=== PATIENT | female | born 1990 | race Caucasian/White ===

== ENCOUNTER 2016-08-03 11:28 | Outpatient (CLI) | payer OTHER ==
[~2016-08-03] VITALS: Ht 175.3 cm; Wt 124.3 kg
[~2016-08-03 11:28] MED LIST: CEPH500T PO; LABE200T3 PO
[2016-08-03 11:36] VITALS: BP 131/91
[2016-08-03] MEDS ORDERED: FLUT9.9S NSEACH (11:39)
[2016-08-03] MEDS ORDERED: HYDR12.56 PO (11:39)
[2016-08-03] MEDS ORDERED: CETI10TA20 PO (11:39)
[2016-08-03 12:00] LABS: BASOPHILS % (AUTO) 0 % (0-10); EOSINOPHILS # (AUTO) 0.2 10^3/uL (0.0-0.3); EOSINOPHILS % (AUTO) 3 % (0-10); LYMPHOCYTES # (AUTO) 2.4 X 10^3 (1.0-4.0); LYMPHOCYTES % (AUTO) 35 % (12-44); MEAN CORPUSCULAR HEMOGLOBIN 27 PG (25-34); MEAN CORPUSCULAR HGB CONC 32 G/DL (32-36); MEAN CORPUSCULAR VOLUME 85 FL (80-99); MEAN PLATELET VOLUME 10.5 FL (7.4-10.4); MONOCYTES # (AUTO) 0.3 X 10^3 (0.0-1.0); MONOCYTES % (AUTO) 4 % (0-12); NEUTROPHILS % (AUTO) 58 % (42-75); PLATELET COUNT 289 10^3/uL (130-400); RED BLOOD COUNT 4.35 10^6/uL (4.35-5.85); RED CELL DISTRIBUTION WIDTH 14.8 % (10.0-14.5); WHITE BLOOD COUNT 6.9 10^3/uL (4.3-11.0)
[2016-08-03 12:20] LABS: ANION GAP 8 MMOL/L (5-14); BLOOD UREA NITROGEN 13 MG/DL (7-18); BUN/CREATININE RATIO 18; CALCIUM 8.6 MG/DL (8.5-10.1); CARBON DIOXIDE 25 MMOL/L (21-32); CHLORIDE 105 MMOL/L (98-107); CREATININE SERUM 0.71 MG/DL (0.60-1.30); GFR ESTIMATED > 60; GLUCOSE 98 MG/DL (70-105); POTASSIUM 3.7 MMOL/L (3.6-5.0); SODIUM 138 MMOL/L (135-145)
== END 2016-08-03 11:50 | disposition home or self-care (01) ==
LOC: PREOP 11:28
PROVIDERS: ATTEND Obstetrics & Gynecology
DX: Z01.812 Encounter for preprocedural laboratory examination (principal); Z11.2 Encounter for screening for other bacterial diseases; N93.8 Other specified abnormal uterine and vaginal bleeding; R10.2 Pelvic and perineal pain; D64.9 Anemia, unspecified
CPT/HCPCS: 36415; 80048; 85025; 87081

== ENCOUNTER 2016-08-08 10:30 | Day surgery (SDC) | payer OTHER ==
[~2016-08-08] VITALS: Ht 175.3 cm; Wt 124.3 kg
[2016-08-08 10:30] VITALS: BP 136/92
[~2016-08-08 10:30] MED LIST changes: +CETI10TA20 PO; +FLUT9.9S NSEACH; +HYDR12.56 PO
[2016-08-08] MEDS ORDERED: CATHETER FLUSH 10 ML SYR IV PRN (11:30)
[2016-08-08] MEDS ORDERED: ceFAZolin 1 GM/NS 50 ML IVPB IV ONE ×2 (11:30)
[2016-08-08] MEDS ORDERED: BUP/EPI 0.25% 1:200,000 (MARCAINE) 30 ML VIAL ONE ×2 (11:30→11:47)
[2016-08-08] MEDS: LACTATED RINGERS 1,000 ML IV PRN ×3 (12:38→14:30)
[2016-08-08] MEDS ORDERED: LACTATED RINGERS 1,000 ML IV PRN (12:40)
[2016-08-08] MEDS ORDERED: MIDAZOLAM 2 MG/2 ML (VERSED) VIAL IV ONE (12:45)
[2016-08-08] MEDS ORDERED: D5 LR IV SOLUTION 1,000 ML IV SCH (13:11)
--- NOTE | 2016-08-08 13:11 | Progress Note-Pre Operative ---
Pre-Operative Progress Note H&P Reviewed The H&P was reviewed, patient examined and no changes noted. Date H&P Reviewed: August 08, 2016 Time H&P Reviewed: 13:10 Pre-Operative Diagnosis: uterine septum/chronic pelvic pain/ovarian cysts JOSE ALBERTO KIRKLAND MD August 08, 2016 1:11 pm
[2016-08-08] MEDS ORDERED: fentaNYL INJECTION 100 MCG/2 ML AMP ONE (13:13)
[2016-08-08] MEDS ORDERED: OXYC-202 PO (13:13)
[2016-08-08] MEDS ORDERED: MIDAZOLAM 2 MG/2 ML (VERSED) VIAL ONE (13:13)
[2016-08-08] MEDS ORDERED: MEPERIDINE (DEMEROL) INJ 100 MG/ML IM ONE (13:15)
[2016-08-08] MEDS ORDERED: ESTROGENS CONJ IV 25 MG/5 ML (PREMARIN) VIAL IVP ONE (13:15)
[2016-08-08] MEDS ORDERED: PROMETHAZINE INJ 25 MG/ML (PHENERGAN) AMP IM ONE (13:15)
[2016-08-08] MEDS ORDERED: KETOROLAC 30 MG/ML VIAL IVP ONE (13:15)
[2016-08-08] MEDS ORDERED: oxyCODONE/APAP 10/325MG (PERCOCET 10) TABLET PO PRN ×2 (13:15→16:00)
[2016-08-08] MEDS ORDERED: ONDANSETRON 4 MG/2 ML (SDV) Z0FRAN IVP PRN ×2 (13:15→14:30)
--- NOTE | 2016-08-08 13:15 | Discharge Instructions ---
Discharge Instructions Discharge Medications New, Converted or Re-Newed RX: RX on Chart Patient Instructions Patient Instructions: as instructed Return to The Hospital For: as instructed Activity & Diet Discharge Diet: No Restrictions Activity as Tolerated: No Orders-Post D/C & Referrals Follow Up Appt: Call to make follow up appt. for MondayAugust 12, 2016 at 930 a.m. for catheter removal and suture removal Activity: Rest for 24 hours, than as tolerated. Wound Care: May remove Band-Aid tomorrow. Replace as desired. Keep incisions clean and dry. Wash daily with soap and water. Diet: As tolerated-Clear Liquids only if nauseated. Tomorrow, may shower or tub bathe as desired. No driving for 24 hours, no alcoholic beverages for 24 hours, and nothing per vagina (no tampons, douching, or intercourse) for 2 weeks. Patient to return to the clinic as soon as possible for: Temperature greater than 101F, Severe Pain, Foul discharge from incision or vagina, Excessive Bleeding (more than a period). JOSE ALBERTO KIRKLAND MD August 08, 2016 1:15 pm
[2016-08-08] MEDS ORDERED: DEXAMETHASONE PF 10 MG/ML (DECADRON) VIAL ONE (14:08)
[2016-08-08] MEDS ORDERED: SEVOFLURANE (ULTANE) 15 ML INHAL SOLN ONE ×2 (14:08→14:27)
[2016-08-08] MEDS ORDERED: LIDOCAINE PF 2% 10 ML (XYLOCAINE) AMP ONE (14:08)
[2016-08-08] MEDS ORDERED: proPOfol 200 MG/20 ML (DIPRIVAN) VIAL IV ONE (14:08)
[2016-08-08] MEDS ORDERED: LACTATED RINGERS 1,000 ML IV ONE ×3 (14:08→14:27)
[2016-08-08] MEDS ORDERED: GLYCOPYRROLATE 0.2 MG/ML (ROBINUL) 2 ML VIAL ONE (14:10)
[2016-08-08] MEDS ORDERED: NEOSTIGMINE (BLOXIVERZ ) 1 MG/1ML 10 ML VIAL ONE (14:10)
[2016-08-08] MEDS ORDERED: fentaNYL INJECTION 100 MCG/2 ML AMP IVP PRN (14:30)
[2016-08-08] MEDS ORDERED: ESTROGENS CONJ IV 25 MG/5 ML (PREMARIN) VIAL ONE (14:48)
[2016-08-08] MEDS ORDERED: WATER (STERILE) FOR INJECTION 10 ML ONE (14:48)
[2016-08-08] MEDS ORDERED: morphine INJ 10 MG/ML 1ML (SYR OR VIAL) ONE (14:48)
[2016-08-08] MEDS: morphine INJ 10 MG/ML 1ML (SYR OR VIAL) IVP PRN ×2 (14:56→15:06)
[2016-08-08 15:35] VITALS: BP 126/80
[2016-08-08 16:05] VITALS: BP 131/80
[2016-08-08 17:00] VITALS: BP 112/60
[2016-08-08 17:45] VITALS: BP 112/60
--- NOTE | 2016-08-09 07:56 | OPERATIVE REPORT ---
DATE OF SERVICE: 08/08/2016 PREOPERATIVE DIAGNOSIS: Dysfunctional uterine bleeding and uterine septum as well as chronic pelvic pain and ovarian cyst. POSTOPERATIVE DIAGNOSIS: Dysfunctional uterine bleeding and uterine septum as well as chronic pelvic pain and ovarian cyst with endometriosis. OPERATIVE PROCEDURE: 1. Hysteroscopic uterine septum revision. 2. Dilation and curettage. 3. Laparoscopy for destruction of endometrial implants and hydrotubation and destruction of ovarian cyst. OPERATIVE DESCRIPTION: With the patient in the supine position under satisfactory general anesthesia, she was repositioned in the dorsal lithotomy position in Mati stirrups and prepped and draped in the usual fashion for abdominal and vaginal surgery. The urinary bladder was emptied with the straight catheter. A weighted speculum was placed the posterior fornix of the vagina and the cervix exposed and grasped anteriorly with single tooth tenaculum. The uterus was sounded to 9 cm with a uterine sound. The cervix was then dilated with Dean dilators to accommodate a hysteroscope which was introduced using glycine as a distending medium. The endometrial cavity was examined. There were a couple of polypoid portions of tissue. The hysteroscope was removed. D and C was performed removing those fragments of tissue as well as the balance of the endometrium. The hysteroscope was reintroduced. There was a septum evident protruding approximately 1/[address] down the endometrial cavity, both tubal ostia were visible and were normal in appearance. The resectoscope was then used, using a roller ball and 50 walsh of cautery to destroy the septum up to the apex of the endometrial cavity. There was no bleeding. Good separation of the anterior and posterior uterine wall at the apex of the uterus was evident. At this point, the hysteroscopic portion of the procedure was terminated, the hysteroscope was removed. A uterine manipulator was placed in the uterus in preparation for a laparoscopy and then the patient brought in low dorsal lithotomy position. A 5 mm incision made in the patient's left upper quadrant, a 5 mm in the inferior base of the umbilicus and 5 mm superior to the symphysis pubis, all 3 port sites were infiltrated with 0.25% Marcaine with epinephrine before incisions were made. The Veress needle placed in the left upper quadrant incision. Correct placement was confirmed with the water drop test. The abdomen was insufflated with 2.4 liters of carbon dioxide and the Veress needle was removed. A 5 mm operative laparoscopic port placed under direct vision. The patient was placed in Trendelenburg allowing the bowel to spill up out of the pelvis and then 5 mm ports were placed in the other 2 incisions, under direct vision. The pelvis was examined, the uterus was elevated. There were endometrial implants in both ovarian fossae. There were numerous cysts on both ovaries consistent with polycystic ovaries. Both fallopian tubes were normal as were the fimbria. The laparoscope was rotated. The appendix was identified, it was a normal vermiform appendix. The laparoscope was brought back to the pelvis, the endometrial implants and both ovarian fossae were touched with electrocautery to destroy them. The superficial cysts on the ovaries were touched with electrocautery to fenestrate them and then the fluid was aspirated out. The cul-de-sac was examined. There was no abnormal pathology noted there. Hydrotubation was performed using sterile saline through the uterine manipulator. Initially, there was some resistance, but then free spill was noted bilaterally. With the procedure complete, no further pathology, no bleeding, the procedure was terminated. All the operative instruments removed under direct vision as were the ports. The abdomen was evacuated of insufflating gas in the process of removing the ports. The skin incisions were closed with interrupted sutures of 3-0 nylon. The patient was replaced in dorsal lithotomy position. A speculum replaced in the vagina, the uterine manipulator was removed and then an 8 mm pediatric Pinto catheter was placed in the uterine cavity. The balloon was put up with 3 mL of air. A nylon suture was used to attach the cervix to maintain it inside the vagina attached to the cervix. The plan will be for removal in 3-4 days. The sponge and needle counts were correct upon completion of the procedure. Estimated blood loss was minimal. The patient tolerated the procedure well and was uneventfully awakened from general anesthesia and transferred to the recovery room in stable condition. The plan is to discharge home PAR. Job ID: [id number] DocumentID: [id number] Dictated Date: 08/08/2016 14:25:00 Lisw Date: 08/09/2016 05:49:56 Dictated By: JOSE ALBERTO KIRKLAND MD
== END 2016-08-08 17:45 | disposition home or self-care (01) ==
LOC: SDC 10:30
PROVIDERS: ATTEND Obstetrics & Gynecology
DX: N80.1 Endometriosis of ovary (principal); N83.201 Unspecified ovarian cyst, right side; N83.202 Unspecified ovarian cyst, left side; I10 Essential (primary) hypertension; Z79.899 Other long term (current) drug therapy
CPT/HCPCS: 84703

== ENCOUNTER 2017-07-22 10:03 | Emergency (ER) | payer OTHER ==
[~2017-07-22] VITALS: Ht 175.3 cm; Wt 136.1 kg
[~2017-07-22 10:03] MED LIST changes: +OXYC-202 PO
--- OUTSIDE RECORDS SUMMARY | 2017-07-22 10:16 | XMS REPORT | Continuity of Care Document ---
Author Author [facility] Address Unknown Phone Unavailable Allergies Active Description Code Type Severity Reaction Onset Reported/Identified Relationship to Patient Clinical Status Yes No Known Drug Allergies [id number] Drug Allergy Unknown N/A 07/28/2015 Medications There is no data. Problems Date Dx Coded Attending Type Code Diagnosis Diagnosed By 04/20/2012 796.2 ELEVATED BLOOD PRESSURE READING WITHOUT DIAGNOSIS OF HYPERTENSION 04/20/2012 V25.01 CONTRACEPTION - ORAL CONTRACEPTION 04/20/2012 DULCE HESTER DO 796.2 ELEVATED BLOOD PRESSURE READING WITHOUT DIAGNOSIS OF HYPERTENSION 04/20/2012 DULCE HSETER DO V25.01 CONTRACEPTION - ORAL CONTRACEPTION 04/20/2012 796.2 ELEVATED BLOOD PRESSURE READING WITHOUT DIAGNOSIS OF HYPERTENSION 04/20/2012 V25.01 CONTRACEPTION - ORAL CONTRACEPTION 04/20/2012 ALESSANDRA MILES APRN 796.2 ELEVATED BLOOD PRESSURE READING WITHOUT DIAGNOSIS OF HYPERTENSION 04/20/2012 ALESSANDRA MILES APRN V25.01 CONTRACEPTION - ORAL CONTRACEPTION 04/20/2012 796.2 ELEVATED BLOOD PRESSURE READING WITHOUT DIAGNOSIS OF HYPERTENSION 04/20/2012 V25.01 CONTRACEPTION - ORAL CONTRACEPTION 04/20/2012 796.2 ELEVATED BLOOD PRESSURE READING WITHOUT DIAGNOSIS OF HYPERTENSION 04/20/2012 V25.01 CONTRACEPTION - ORAL CONTRACEPTION 04/20/2012 796.2 ELEVATED BLOOD PRESSURE READING WITHOUT DIAGNOSIS OF HYPERTENSION 04/20/2012 V25.01 CONTRACEPTION - ORAL CONTRACEPTION 04/20/2012 796.2 ELEVATED BLOOD PRESSURE READING WITHOUT DIAGNOSIS OF HYPERTENSION 04/20/2012 V25.01 CONTRACEPTION - ORAL CONTRACEPTION 04/20/2012 DULCE HESTER DO 796.2 ELEVATED BLOOD PRESSURE READING WITHOUT DIAGNOSIS OF HYPERTENSION 04/20/2012 DULCE HESTER DO V25.01 CONTRACEPTION - ORAL CONTRACEPTION 04/20/2012 DULCE HESTER DO 796.2 ELEVATED BLOOD PRESSURE READING WITHOUT DIAGNOSIS OF HYPERTENSION 04/20/2012 DULCE HESTER DO V25.01 CONTRACEPTION - ORAL CONTRACEPTION 04/20/2012 GINGERALESSANDRA Mohr APRN A 796.2 ELEVATED BLOOD PRESSURE READING WITHOUT DIAGNOSIS OF HYPERTENSION 04/20/2012 ALESSANDRA MILES APRN A V25.01 CONTRACEPTION - ORAL CONTRACEPTION 04/20/2012 DULCE HESTER DO 796.2 ELEVATED BLOOD PRESSURE READING WITHOUT DIAGNOSIS OF HYPERTENSION 04/20/2012 DULCE HESTER DO V25.01 CONTRACEPTION - ORAL CONTRACEPTION 04/20/2012 ARTURO DURAN MD 796.2 ELEVATED BLOOD PRESSURE READING WITHOUT DIAGNOSIS OF HYPERTENSION 04/20/2012 ARTURO DURAN MD V25.01 CONTRACEPTION - ORAL CONTRACEPTION 04/26/2012 DULCE HESTER DO V81.1 HYPERTENSION SCREENING 04/26/2012 V81.1 HYPERTENSION SCREENING 04/26/2012 ALESSANDRA MILES APRN A V81.1 HYPERTENSION SCREENING 04/26/2012 V81.1 HYPERTENSION SCREENING 04/26/2012 V81.1 HYPERTENSION SCREENING 04/26/2012 V81.1 HYPERTENSION SCREENING 04/26/2012 V81.1 HYPERTENSION SCREENING 04/26/2012 DULCE HESTER DO V81.1 HYPERTENSION SCREENING 04/26/2012 DULCE HESTER DO V81.1 HYPERTENSION SCREENING 04/26/2012 ALESSANDRA MILES APRN A V81.1 HYPERTENSION SCREENING 04/26/2012 DULCE HESTER DO V81.1 HYPERTENSION SCREENING 04/26/2012 ARTURO DURAN MD V81.1 HYPERTENSION SCREENING 05/07/2012 401.1 HYPERTENSION, BENIGN ESSENTIAL 05/07/2012 487.1 INFLUENZA WITH OTHER RESPIRATORY MANIFESTATIONS 05/07/2012 ALESSANDRA MILES APRN A 401.1 HYPERTENSION, BENIGN ESSENTIAL 05/07/2012 ALESSANDRA MILES APRN A 487.1 INFLUENZA WITH OTHER RESPIRATORY MANIFESTATIONS 05/07/2012 401.1 HYPERTENSION, BENIGN ESSENTIAL 05/07/2012 487.1 INFLUENZA WITH OTHER RESPIRATORY MANIFESTATIONS 05/07/2012 401.1 HYPERTENSION, BENIGN ESSENTIAL 05/07/2012 487.1 INFLUENZA WITH OTHER RESPIRATORY MANIFESTATIONS 05/07/2012 401.1 HYPERTENSION, BENIGN ESSENTIAL 05/07/2012 487.1 INFLUENZA WITH OTHER RESPIRATORY MANIFESTATIONS 05/07/2012 401.1 HYPERTENSION, BENIGN ESSENTIAL 05/07/2012 487.1 INFLUENZA WITH OTHER RESPIRATORY MANIFESTATIONS 05/07/2012 HESTER DO, DULCE K 401.1 HYPERTENSION, BENIGN ESSENTIAL 05/07/2012 SHALOM HESTER DOA K 487.1 INFLUENZA WITH OTHER RESPIRATORY MANIFESTATIONS 05/07/2012 MIR TRINIDAD DULCE K 401.1 HYPERTENSION, BENIGN ESSENTIAL 05/07/2012 SHALOM HESTER DOA K 487.1 INFLUENZA WITH OTHER RESPIRATORY MANIFESTATIONS 05/07/2012 DENNIS MILES APRNIDI A 401.1 HYPERTENSION, BENIGN ESSENTIAL 05/07/2012 DENNIS MILES APRNIDI A 487.1 INFLUENZA WITH OTHER RESPIRATORY MANIFESTATIONS 05/07/2012 MIR TRINIDAD DULCE K 401.1 HYPERTENSION, BENIGN ESSENTIAL 05/07/2012 SHALOM HESTER DOA K 487.1 INFLUENZA WITH OTHER RESPIRATORY MANIFESTATIONS 05/07/2012 RENEE CHACON, ARTURO Mohr 401.1 HYPERTENSION, BENIGN ESSENTIAL 05/07/2012 RENEE CHACON, ARTURO Mohr 487.1 INFLUENZA WITH OTHER RESPIRATORY MANIFESTATIONS 06/26/2012 DENNIS MILES APRNIDI A 724.5 BACK PAIN, GENERAL 06/26/2012 DENNIS MILES APRNIDI A V25.9 CONTRACEPTION MANAGEMENT 06/26/2012 ALESSANDRA MILES APRN A V74.5 STD SCREEN 06/26/2012 ALESSANDRA MILES APRN A V76.2 CERVICAL CANCER SCREENING (PAP SMEAR) 06/26/2012 724.5 BACK PAIN, GENERAL 06/26/2012 V25.9 CONTRACEPTION MANAGEMENT 06/26/2012 V74.5 STD SCREEN 06/26/2012 V76.2 CERVICAL CANCER SCREENING (PAP SMEAR) 06/26/2012 724.5 BACK PAIN, GENERAL 06/26/2012 V25.9 CONTRACEPTION MANAGEMENT 06/26/2012 V74.5 STD SCREEN 06/26/2012 V76.2 CERVICAL CANCER SCREENING (PAP SMEAR) 06/26/2012 724.5 BACK PAIN, GENERAL 06/26/2012 V25.9 CONTRACEPTION MANAGEMENT 06/26/2012 V74.5 STD SCREEN 06/26/2012 V76.2 CERVICAL CANCER SCREENING (PAP SMEAR) 06/26/2012 724.5 BACK PAIN, GENERAL 06/26/2012 V25.9 CONTRACEPTION MANAGEMENT 06/26/2012 V74.5 STD SCREEN 06/26/2012 V76.2 CERVICAL CANCER SCREENING (PAP SMEAR) 06/26/2012 DULCE HESTER DO K 724.5 BACK PAIN, GENERAL 06/26/2012 SHALOM HESTER DOA K V25.9 CONTRACEPTION MANAGEMENT 06/26/2012 HESTER DO DULCE K V74.5 STD SCREEN 06/26/2012 HESTER DO DULCE K V76.2 CERVICAL CANCER SCREENING (PAP SMEAR) 06/26/2012 HESTER DO DULCE K 724.5 BACK PAIN, GENERAL 06/26/2012 HESTER DO DULCE K V25.9 CONTRACEPTION MANAGEMENT 06/26/2012 HESTER DO DULCE K V74.5 STD SCREEN 06/26/2012 HESTER DO DULCE K V76.2 CERVICAL CANCER SCREENING (PAP SMEAR) 06/26/2012 GINGER RESTORATIVE AIDE, ALESSANDRA A 724.5 BACK PAIN, GENERAL 06/26/2012 GINGER RESTORATIVE AIDE, ALESSANDRA A V25.9 CONTRACEPTION MANAGEMENT 06/26/2012 GINGER RESTORATIVE AIDE, ALESSANDRA A V74.5 STD SCREEN 06/26/2012 GINGER RESTORATIVE AIDE, ALESSANDRA A V76.2 CERVICAL CANCER SCREENING (PAP SMEAR) 06/26/2012 SHALOM HESTER DOA K 724.5 BACK PAIN, GENERAL 06/26/2012 SHALOM HESTER DOA K V25.9 CONTRACEPTION MANAGEMENT 06/26/2012 HESTER DO DULCE K V74.5 STD SCREEN 06/26/2012 HESTER SHALOM TRINIDADA K V76.2 CERVICAL CANCER SCREENING (PAP SMEAR) 06/26/2012 ARTURO DURAN MD 724.5 BACK PAIN, GENERAL 06/26/2012 ARTURO DURAN MD V25.9 CONTRACEPTION MANAGEMENT 06/26/2012 ARTURO DURAN MD V74.5 STD SCREEN 06/26/2012 ARTURO DURAN MD V76.2 CERVICAL CANCER SCREENING (PAP SMEAR) 07/24/2012 V70.0 ROUTINE GENERAL MEDICAL EXAMINATION AT A HEALTH CARE FACILITY 07/24/2012 V70.0 ROUTINE GENERAL MEDICAL EXAMINATION AT A HEALTH CARE FACILITY 07/24/2012 V70.0 ROUTINE GENERAL MEDICAL EXAMINATION AT A HEALTH CARE FACILITY 07/24/2012 V70.0 ROUTINE GENERAL MEDICAL EXAMINATION AT A HEALTH CARE FACILITY 07/24/2012 DULCE HESTER DO K V70.0 ROUTINE GENERAL MEDICAL EXAMINATION AT A HEALTH CARE FACILITY 07/24/2012 DULCE HESTER DO K V70.0 ROUTINE GENERAL MEDICAL EXAMINATION AT A HEALTH CARE FACILITY 07/24/2012 GINGER DELGADO ALESSANDRA A V70.0 ROUTINE GENERAL MEDICAL EXAMINATION AT A HEALTH CARE FACILITY 07/24/2012 SHALOM HESTER DOA K V70.0 ROUTINE GENERAL MEDICAL EXAMINATION AT A HEALTH CARE FACILITY 07/24/2012 ARTURO DURAN MD V70.0 ROUTINE GENERAL MEDICAL EXAMINATION AT A HEALTH CARE FACILITY 09/12/2012 V25.02 CONTRACEPTION - ANY METHOD 09/12/2012 V25.02 CONTRACEPTION - ANY METHOD 09/12/2012 SHALOM HESTER DOA K V25.02 CONTRACEPTION - ANY METHOD 09/12/2012 SHALOM HESTER DOA K V25.02 CONTRACEPTION - ANY METHOD 09/12/2012 GINGER DELGADO ALESSANDRA A V25.02 CONTRACEPTION - ANY METHOD 09/12/2012 SHALOM HESTER DOA K V25.02 CONTRACEPTION - ANY METHOD 09/12/2012 ARTURO DURAN MD V25.02 CONTRACEPTION - ANY METHOD 01/18/2013 MIR TRINIDAD DULCE K 728.71 PLANTAR FASCIAL FIBROMATOSIS 01/18/2013 MIR TRINIDAD DULCE K 729.82 CRAMP OF LIMB 01/18/2013 MIR TRINIDAD, DULCE K 782.1 RASH 01/18/2013 HESTER , DULCE K 728.71 PLANTAR FASCIAL FIBROMATOSIS 01/18/2013 HESTER DO DULCE K 729.82 CRAMP OF LIMB 01/18/2013 HESTER , DULCE K 782.1 RASH 01/18/2013 GINGER DELGADO, ALESSANDRA A 728.71 PLANTAR FASCIAL FIBROMATOSIS 01/18/2013 GINGER DELGADO, ALESSANDRA A 729.82 CRAMP OF LIMB 01/18/2013 GINGER APRN, ALESSANDRA A 782.1 RASH 01/18/2013 HESTER DO DULCE K 728.71 PLANTAR FASCIAL FIBROMATOSIS 01/18/2013 HESTER , DULCE K 729.82 CRAMP OF LIMB 01/18/2013 HESTER DO DULCE K 782.1 RASH 01/18/2013 ARTURO DURAN MD 728.71 PLANTAR FASCIAL FIBROMATOSIS 01/18/2013 ARTURO DURAN MD 729.82 CRAMP OF LIMB 01/18/2013 ARTURO DURAN MD 782.1 RASH 02/19/2013 DULCE HESTER DO K 728.4 LAXITY OF LIGAMENT 02/19/2013 ALESSANDRA MILES APRN 728.4 LAXITY OF LIGAMENT 02/19/2013 DULCE HESTER DO K 728.4 LAXITY OF LIGAMENT 02/19/2013 ARTURO DURAN MD 728.4 LAXITY OF LIGAMENT 06/11/2013 DULCE HESTER DO K 611.71 MASTODYNIA 06/11/2013 ARTURO DURAN MD 611.71 MASTODYNIA 11/19/2013 ARTURO DURAN MD 789.01 ABDOMINAL PAIN RIGHT UPPER QUADRANT 11/06/2014 NAIDA NAVASRAVIN Sommers FILM EXAMINER Ot 959.7 11/06/2014 NAIDA NAVASRAVIN Sommers FILM EXAMINER Ot E888.9 11/18/2014 VANBECELAERE, RAKEL M FILM EXAMINER Ot 240.9 11/18/2014 VANBECELAERE, RAKEL M FILM EXAMINER Ot 787.20 11/20/2014 VANBECELAERE, RAKEL M FILM EXAMINER Ot 240.9 11/20/2014 VANBECELAERE, RAKEL M FILM EXAMINER Ot 787.20 11/20/2014 VANBECELAERE, RAKEL M FILM EXAMINER Ot 240.9 11/20/2014 VANBECELAERE, RAKEL M FILM EXAMINER Ot 787.20 07/28/2015 XANDER GARIBAY MD Ot N39.0 URINARY TRACT INFECTION, SITE NOT SPECIF 07/28/2015 NAIDA NAVASRAVIN Sommers FILM EXAMINER Ot 959.7 LOWER LEG INJURY NOS 07/28/2015 NAVAS, RAZA Sommers FILM EXAMINER Ot E888.9 FALL NOS 07/28/2015 VANBECELAERE, RAKEL M FILM EXAMINER Ot 240.9 GOITER NOS 07/28/2015 VANBECELAERE, RAKEL M FILM EXAMINER Ot 787.20 DYSPHAGIA, UNSPECIFIED 07/29/2015 XANDER GARIBAY MD Ot N39.0 URINARY TRACT INFECTION, SITE NOT SPECIF 08/02/2016 NAIDA NAVASNETTE A FILM EXAMINER Ot 959.7 LOWER LEG INJURY NOS 08/02/2016 NAIDA NAVASRAVIN Sommers FILM EXAMINER Ot E888.9 FALL NOS 08/02/2016 VANBECELAERE, RAKEL M FILM EXAMINER Ot 240.9 GOITER NOS 08/02/2016 RAKEL COXP Ot 787.20 DYSPHAGIA, UNSPECIFIED 08/03/2016 JOSE ALBERTO KIRKLAND MD, Ot D64.9 ANEMIA, UNSPECIFIED 08/03/2016 JOSE ALBERTO KIRKLAND MD, Ot N93.8 OTHER SPECIFIED ABNORMAL UTERINE AND VAG 08/03/2016 JOSE ALBERTO KIRKLAND MD, Ot R10.2 PELVIC AND PERINEAL PAIN 08/03/2016 JOSE ALBERTO KIRKLAND MD, Ot Z01.812 ENCOUNTER FOR PREPROCEDURAL LABORATORY E 08/03/2016 JOSE ALBERTO KIRKLAND MD, Ot Z11.2 ENCOUNTER FOR SCREENING FOR OTHER BACTER 08/04/2016 JOSE ALBERTO KIRKLAND MD, Ot D64.9 ANEMIA, UNSPECIFIED 08/04/2016 JOSE ALBERTO KIRKLAND MD, Ot N93.8 OTHER SPECIFIED ABNORMAL UTERINE AND VAG 08/04/2016 JOSE ALBERTO KIRKLAND MD, Ot R10.2 PELVIC AND PERINEAL PAIN 08/04/2016 JOSE ALBERTO KIRKLAND MD, Ot Z01.812 ENCOUNTER FOR PREPROCEDURAL LABORATORY E 08/04/2016 JOSE ALBERTO KIRKLAND MD, Ot Z11.2 ENCOUNTER FOR SCREENING FOR OTHER BACTER 08/08/2016 JOSE ALBERTO KIRKLAND MD, Ot I10 ESSENTIAL (PRIMARY) HYPERTENSION 08/08/2016 JOSE ALBERTO KIRKLNAD MD, Ot N80.1 ENDOMETRIOSIS OF OVARY 08/08/2016 JOSE ALBERTO KIRKLAND MD, Ot N83.201 UNSPECIFIED OVARIAN CYST, RIGHT SIDE 08/08/2016 JOSE ALBERTO KIRKLAND MD, Ot N83.202 UNSPECIFIED OVARIAN CYST, LEFT SIDE 08/08/2016 JOSE ALBERTO KIRKLAND MD, Ot Z79.899 OTHER RECRUITMENT ADVERTISING MANAGER (CURRENT) DRUG THERAPY 08/11/2016 JOSE ALBERTO KIRKLAND MD, Ot I10 ESSENTIAL (PRIMARY) HYPERTENSION 08/11/2016 JOSE ALBERTO KIRKLAND MD, Ot N80.1 ENDOMETRIOSIS OF OVARY 08/11/2016 JOSE ALBERTO KIRKLAND MD, Ot N83.201 UNSPECIFIED OVARIAN CYST, RIGHT SIDE 08/11/2016 JOSE ALBERTO KIRKLAND MD, Ot N83.202 UNSPECIFIED OVARIAN CYST, LEFT SIDE 08/11/2016 MARITA CHACON, JOSE ALBERTO Hines Ot Z79.899 OTHER RECRUITMENT ADVERTISING MANAGER (CURRENT) DRUG THERAPY Procedures Code [place] [address] URINE TEST (IN- HOUSE) 04/20/2012 03522 THERAPUTIC INJ SQ/IM 06/26/2012 J1050 DEPO PROVERA 06/26/2012 25440 CULTURE UROGENITAL 06/26/2012 82601 GC/CHLAM PROBE (STATE) 06/26/2012 80308 PAP SMEAR 06/26/2012 Q0091 PAP SMEAR OBTAIN SMEAR 06/26/2012 83291 URINE TEST (IN- HOUSE) 06/26/2012 09763 TRICHOMONAS (IN-HOUSE) 06/26/2012 19309 ROUTINE VENIPUNCTURE 07/24/2012 45156 TRIGGER POINT INJ/1-2 MUS 07/24/2012 08210 XRAY SHOULDER RIGHT COMP 2 VIEWS 07/24/2012 60637 CBC 07/24/2012 45884 LIPID PANEL 07/24/2012 52584 CMP 07/24/2012 5166896 GFR CALC (RESULT ONLY) 07/24/2012 24513 TSH 07/25/2012 PHYSICAL PHYSICAL THERAPY, VIA JESS 08/14/2012 09732 URINE TEST (IN- HOUSE) 09/12/2012 J1050 DEPO PROVERA 09/12/2012 62839 THERAPUTIC INJ SQ/IM 09/12/2012 70067 URINE TEST (IN- HOUSE) 12/05/2012 32799 THERAPUTIC INJ SQ/IM 12/05/2012 J1050 DEPO PROVERA 12/05/2012 73871 XRAY SCOLIOSIS SERIES 02/19/2013 45771 URINE TEST (IN- HOUSE) 02/25/2013 42532 TEST, URINE (IN- HOUSE) 06/11/2013 20509 ROUTINE VENIPUNCTURE 11/19/2013 59424 CMP 11/19/2013 Results Test Result Range Complete blood count (CBC) with automated white blood cell (WBC) differential - 08/03/16 11:47 Blood leukocytes automated count (number/volume) 6.9 10*3/uL 4.3-11.0 Blood erythrocytes automated count (number/volume) 4.35 10*6/uL 4.35-5.85 Venous blood hemoglobin measurement (mass/volume) 11.9 g/dL 11.5-16.0 Blood hematocrit (volume fraction) 37 % 35-52 Automated erythrocyte mean corpuscular volume 85 [foz_us] 80-99 Automated erythrocyte mean corpuscular hemoglobin (mass per erythrocyte) 27 pg 25-34 Automated erythrocyte mean corpuscular hemoglobin concentration measurement ( mass/volume) 32 g/dL 32-36 Automated erythrocyte distribution width ratio 14.8 % 10.0-14.5 Automated blood platelet count (count/volume) 289 10*3/uL 130-400 Automated blood platelet mean volume measurement 10.5 [foz_us] 7.4-10.4 Automated blood neutrophils/100 leukocytes 58 % 42-75 Automated blood lymphocytes/100 leukocytes 35 % 12-44 Blood monocytes/100 leukocytes 4 % 0-12 Automated blood eosinophils/100 leukocytes 3 % 0-10 Automated blood basophils/100 leukocytes 0 % 0-10 Blood neutrophils automated count (number/volume) 4.0 10*3 1.8-7.8 Blood lymphocytes automated count (number/volume) 2.4 10*3 1.0-4.0 Blood monocytes automated count (number/volume) 0.3 10*3 0.0-1.0 Automated eosinophil count 0.2 10*3/uL 0.0-0.3 Automated blood basophil count (count/volume) 0.0 10*3/uL 0.0-0.1 Whole blood basic metabolic panel - 08/03/16 11:47 Serum or plasma sodium measurement (moles/volume) 138 mmol/L 135-145 Serum or plasma potassium measurement (moles/volume) 3.7 mmol/L 3.6-5.0 Serum or plasma chloride measurement (moles/volume) 105 mmol/L 98-107 Carbon dioxide 25 mmol/L 21-32 Serum or plasma anion gap determination (moles/volume) 8 mmol/L 5-14 Serum or plasma urea nitrogen measurement (mass/volume) 13 mg/dL 7-18 Serum or plasma creatinine measurement (mass/volume) 0.71 mg/dL 0.60-1.30 Serum or plasma urea nitrogen/creatinine mass ratio 18 NRG Serum or plasma creatinine measurement with calculation of estimated glomerular filtration rate > NRG Serum or plasma glucose measurement (mass/volume) 98 mg/dL 70-105 Serum or plasma calcium measurement (mass/volume) 8.6 mg/dL 8.5-10.1 Methicillin resistant Staphylococcus aureus (MRSA) screening culture - 11:47 Methicillin resistant Staphylococcus aureus (MRSA) screening culture NEG NRG Urine beta human chorionic gonadotropin (hCG) measurement - 08/08/16 10:45 Urine beta human chorionic gonadotropin (hCG) measurement NEGATIVE NEGATIVE Encounters ACCT No. Visit Date/Time Discharge Status Pt. Type Provider Facility Loc./Unit Complaint [id number] 11/19/2013 08:59:00 11/19/2013 23:59:59 CLS Outpatient RENEE CHACON, ARTURO Mohr [id number] 06/11/2013 09:49:00 06/11/2013 23:59:59 CLS Outpatient DULCE HESTER DO [id number] 02/25/2013 15:05:00 02/25/2013 23:59:59 CLS Outpatient ALESSANDRA MILES APRN [id number] 02/19/2013 09:12:00 02/19/2013 23:59:59 CLS Outpatient DULCE HESTER DO [id number] 01/18/2013 09:48:00 01/18/2013 23:59:59 CLS Outpatient DULCE HESTER DO [id number] 06/26/2012 10:57:00 06/26/2012 23:59:59 CLS Outpatient ALESSANDRA MILES APRN [id number] 05/07/2012 09:58:00 05/07/2012 23:59:59 CLS Outpatient [id number] 04/26/2012 13:21:00 04/26/2012 23:59:59 CLS Outpatient DULCE HESTER DO [id number] 04/20/2012 14:52:00 04/20/2012 23:59:59 CLS Outpatient [id number] 12/05/2012 09:49:00 Document Registration [id number] 09/12/2012 14:32:00 Document Registration [id number] 08/14/2012 09:46:00 Document Registration [id number] 07/24/2012 10:48:00 Document Registration [id number] 08/08/2016 10:30:00 08/08/2016 17:45:00 DIS Outpatient MARITA CHACON, JOSE ALBERTO [facility] CPP/MENORRHAGIA [id number] 08/03/2016 11:28:00 08/03/2016 11:50:00 DIS Outpatient MARITA CHACON, JOSE ALBERTO Hines [facility] PREOP CPP/MENORRHAGIA [id number] 07/28/2015 10:19:00 07/28/2015 13:35:00 DIS Emergency [place] CHACON, XANDER Gallegos [facility] ER SEIZURE [id number] 11/06/2014 08:57:00 11/06/2014 23:59:59 CLS Outpatient RAKEL COX [facility] RAD DSYPHAGIA LARGE THYROID GLAND [id number] 01/03/2014 16:57:00 01/03/2014 23:59:59 CLS Outpatient RAZA NAVAS [facility] RAD LT KNEE PAIN, S/P FALL [id number] 09/07/2012 11:11:00 09/21/2012 15:34:00 DIS Outpatient 05/201701/09/2017 09:01:31 01/09/2017 23:59:59 CLS Outpatient Dee Fallon
[2017-07-22 10:34] LABS: BASOPHILS % (AUTO) 0 % (0-10); EOSINOPHILS # (AUTO) 0.2 10^3/uL (0.0-0.3); EOSINOPHILS % (AUTO) 3 % (0-10); HEMATOCRIT 39 % (35-52); HEMOGLOBIN 12.9 G/DL (11.5-16.0); LYMPHOCYTES # (AUTO) 1.8 X 10^3 (1.0-4.0); LYMPHOCYTES % (AUTO) 26 % (12-44); MEAN CORPUSCULAR HEMOGLOBIN 28 PG (25-34); MEAN CORPUSCULAR HGB CONC 33 G/DL (32-36); MEAN CORPUSCULAR VOLUME 84 FL (80-99); MEAN PLATELET VOLUME 10.4 FL (7.4-10.4); MONOCYTES # (AUTO) 0.8 X 10^3 (0.0-1.0); MONOCYTES % (AUTO) 11 % (0-12); NEUTROPHILS # (AUTO) 4.2 X 10^3 (1.8-7.8); NEUTROPHILS % (AUTO) 60 % (42-75); PLATELET COUNT 312 10^3/uL (130-400); RED BLOOD COUNT 4.58 10^6/uL (4.35-5.85); RED CELL DISTRIBUTION WIDTH 13.5 % (10.0-14.5)
[2017-07-22 10:55] LABS: INR 1.1 (0.8-1.4); PROTHROMBIN TIME PATIENT 13.8 SEC (12.2-14.7)
[2017-07-22 11:02] LABS: ALANINE AMINOTRANSFERASE 20 U/L (0-55); ALBUMIN 3.7 GM/DL (3.2-4.5); ALKALINE PHOSPHATASE 106 U/L (40-136); AMYLASE 43 U/L (25-125); BILIRUBIN,TOTAL 0.6 MG/DL (0.1-1.0); BUN/CREATININE RATIO 23; CALCIUM 9.1 MG/DL (8.5-10.1); CARBON DIOXIDE 26 MMOL/L (21-32); CHLORIDE 108 MMOL/L (98-107); CREATININE SERUM 0.69 MG/DL (0.60-1.30); GFR ESTIMATED > 60; GLUCOSE 82 MG/DL (70-105); LIPASE 26 U/L (8-78); MAGNESIUM 2.1 MG/DL (1.8-2.4); POTASSIUM 3.4 MMOL/L (3.6-5.0); SODIUM 142 MMOL/L (135-145); TOTAL PROTEIN 7.1 GM/DL (6.4-8.2)
--- NOTE | 2017-07-22 11:12 | Diagnostic Imaging Report ---
INDICATION: Chest pain. COMPARISON: None. Frontal and lateral views of the chest demonstrate mild thoracic scoliosis. Lungs are otherwise clear. Heart is normal. There is no pneumothorax. IMPRESSION: Negative chest. Dictated by: Dictated on workstation # [id number]
--- NOTE | 2017-07-22 11:19 | ED Chest Pain ---
General Chief Complaint: Chest Pain Stated Complaint: INTERMITTENT CP Nursing Triage Note: C/O intermittent sharp cp for 2 days. 3 episodes last night and 5 this am. No pain at this time. States it is under left breast. States being under stress at work Nursing Sepsis Screen: No Definite Risk Source: patient History of Present Illness Date Seen by Provider: Jul 22, 2017 Time Seen by Provider: 10:15 Initial Comments PT ARRIVES VIA POV C/O LEFT CHEST PAIN, BELOW LEFT BREAST, FOR 2 DAYS PAIN IS SHARP, AND COMES AND GOES, LASTS FOR A FEW SECONDS AND GOES AWAY--IS NOT PRESENT NOW. AND HAS NOT HAD ANY PAIN SINCE 0500 THIS AM. NOTHING WORSENS OR IMPROVES PAIN NO SHORTNESS OF BREATH NO SWEATS NO NAUSEA/VOMITING NO PALPITATIONS HAS NOT TAKEN ANYTHING FOR PAIN STATES SHE IS UNDER ALOT OF STRESS AT WORK Allergies and Home Medications Allergies Coded Allergies: No Known Drug Allergies (Unverified , 07/28/15) Home Medications Cetirizine HCl 10 Mg Tablet, 10 MG PO DAILY, (Reported) Cyclobenzaprine HCl 10 Mg Tablet, 10 MG PO Q8H Prescribed by: SANTI DEL ROSARIO on 07/22/17 1123 Fluticasone Propionate 9.9 Ml Round [place].susp, 1 SPRAY NSEACH BID, (Reported) Hydrochlorothiazide 12.5 Mg Tablet, 12.5 MG PO DAILY, (Reported) Labetalol HCl 200 Mg Tablet, 200 MG PO BID, (Reported) Methylprednisolone 4 Mg Tab.ds.pk, 4 MG PO UD Prescribed by: SANTI DEL ROSARIO on 07/22/17 1123 Oxycodone HCl/Acetaminophen 1 Each Tablet, 1-2 TAB PO Q4H PRN for PAIN Prescribed by: JOSE ALBERTO VALLADARES on 08/08/16 1313 Patient Home Medication List Home Medication List Reviewed: Yes Review of Systems Constitutional: no symptoms reported EENTM: No Symptoms Reported Respiratory: No Symptoms Reported Cardiovascular: See HPI, Chest Pain Gastrointestinal: No Symptoms Reported Genitourinary: No Symptoms Reported Musculoskeletal: no symptoms reported Skin: no symptoms reported Psychiatric/Neurological: See HPI, Anxiety Endocrine: No Symptoms Reported Hematologic/Lymphatic: No Symptoms Reported Past Bedhpul-Mgdcbi-Gymdlh Hx Patient Social History Alcohol Use: Denies Use Recreational Drug Use: Yes (previous use as teen- pot) Drug of Choice: THC TEEN Smoking Status: Former Smoker Former Smoker, Quit: Mar 27, 2007 2nd Hand Smoke Exposure: No Recent Foreign Travel: No Contact w/Someone Who Travel: No Recent Infectious Disease Expo: No Recent Hopitalizations: No Physical Abuse: No Sexual Abuse: No Mistreated: No Fear: No Immunizations Up To Date Tetanus Booster (TDap): Unknown Seasonal Allergies Seasonal Allergies: Yes Past Medical History Surgeries: Yes (knee scope, ) Orthopedic Respiratory: No Cardiac: Yes Hypertension Neurological: Yes (SEIZURES A YOUNG CHILD, NONE SINCE THEN) Seizure Disorder Reproductive Disorders: Yes (CPP, DUB) Female Reproductive Disorders: Endometriosis, Polycystic Ovarian Dis Genitourinary: No Gastrointestinal: No Musculoskeletal: No Endocrine: No (pre diabetic) Cancer: No Psychosocial: No Nursing Suicide Risk Score: 0 Integumentary: No (Left forearm stitches) Blood Disorders: No Family Medical History No Pertinent Family Hx Physical Exam Vital Signs Capillary Refill : Less Than 3 Seconds General Appearance: No Apparent Distress, WD/WN Neck: Full Range of Motion, Normal Inspection, Non Tender, Supple Respiratory: Normal Breath Sounds, No Accessory Muscle Use, No Respiratory Distress, Other (LEFT LOWER ANTERIOR CHEST WALL TENDERNESS--PALPATION REPRODUCES PAIN ) Cardiovascular: Regular Rate, Rhythm, No Edema, No JVD, No Murmur, Normal Peripheral Pulses Gastrointestinal: Non Tender, Soft Extremity: Normal Inspection Neurologic/Psychiatric: Alert, Oriented x3, No Motor/Sensory Deficits, Normal 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, 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 Norm as Tested Skin: Normal Color, Warm/Dry; No Rash Progress/Results/Core Measures Lab Results Laboratory Tests Test 07/22/17 10:19 Range/Units White Blood Count 7.0 4.3-11.0 10^3/uL Red Blood Count 4.58 4.35-5.85 10^6/uL Hemoglobin 12.9 11.5-16.0 G/DL Hematocrit 39 35-52 % Mean Corpuscular Volume 84 80-99 FL Mean Corpuscular Hemoglobin 28 25-34 PG Mean Corpuscular Hemoglobin Concent 33 32-36 G/DL Red Cell Distribution Width 13.5 10.0-14.5 % Platelet Count 312 130-400 10^3/uL Mean Platelet Volume 10.4 7.4-10.4 FL Neutrophils (%) (Auto) 60 42-75 % Lymphocytes (%) (Auto) 26 12-44 % Monocytes (%) (Auto) 11 0-12 % Eosinophils (%) (Auto) 3 0-10 % Basophils (%) (Auto) 0 0-10 % Neutrophils # (Auto) 4.2 1.8-7.8 X 10^3 Lymphocytes # (Auto) 1.8 1.0-4.0 X 10^3 Monocytes # (Auto) 0.8 0.0-1.0 X 10^3 Eosinophils # (Auto) 0.2 0.0-0.3 10^3/uL Basophils # (Auto) 0.0 0.0-0.1 10^3/uL Prothrombin Time 13.8 12.2-14.7 SEC INR Comment 1.1 0.8-1.4 Activated Partial Thromboplast Time 28 24-35 SEC Sodium Level 142 135-145 MMOL/L Potassium Level 3.4 L 3.6-5.0 MMOL/L Chloride Level 108 H 98-107 MMOL/L Carbon Dioxide Level 26 21-32 MMOL/L Anion Gap 8 5-14 MMOL/L Blood Urea Nitrogen 16 7-18 MG/DL Creatinine 0.69 0.60-1.30 MG/DL Estimat Glomerular Filtration Rate > 60 BUN/Creatinine Ratio 23 Glucose Level 82 70-105 MG/DL Calcium Level 9.1 8.5-10.1 MG/DL Magnesium Level 2.1 1.8-2.4 MG/DL Total Bilirubin 0.6 0.1-1.0 MG/DL Aspartate Amino Transf (AST/SGOT) 15 5-34 U/L Alanine Aminotransferase (ALT/SGPT) 20 0-55 U/L Alkaline Phosphatase 106 40-136 U/L Troponin I < 0.30 <0.30 NG/ML B-Type Natriuretic Peptide 20.1 <100.0 PG/ML Total Protein 7.1 6.4-8.2 GM/DL Albumin 3.7 3.2-4.5 GM/DL Amylase Level 43 25-125 U/L Lipase 26 8-78 U/L Serum Test, Qualitative NEGATIVE NEGATIVE My Orders Orders - SANTI DEL ROSARIO DO Saline Lock/Iv-Start (07/22/17 10:25) Ekg Tracing (07/22/17 10:25) Monitor-Rhythm Ecg Trace Only (07/22/17 10:25) Amylase (4/28/18 10:25) BNP (07/22/17 10:25) Cbc With Automated Diff (07/22/17 10:25) Comprehensive Metabolic Panel (07/22/17 10:25) Hcg,Qualitative Serum (07/22/17 10:25) Lipase (07/22/17 10:25) Magnesium (07/22/17 10:25) Protime With Inr (07/22/17 10:25) Partial Thromboplastin Time (07/22/17 10:25) Troponin I (07/22/17 10:25) Chest Pa/Lat (2 View) (07/22/17 10:25) Ketorolac Injection (Toradol Injection) (07/22/17 11:30) Iv Push Bias Binding Cutter Ed (07/22/17 ) Vital Signs/I&O Blood Pressure Mean: 120 Progress Note : Progress Note NO PAIN DURING ER STAY Initial ECG Impression Date: Jul 22, 2017 Initial ECG Impression Time: 10:31 Initial ECG Rate: 83 Initial ECG Rhythm: Normal Sinus Initial ECG Comparisson: No Previous ECG Available Comments CXR--NO ACUTE PROCESS, PER RADIOLOGIST REPORT @ 1117 Reviewed: Reviewed by Me Departure Impression Primary Impression: Left-sided chest wall pain Disposition: HOME, SELF-CARE Condition: Improved Departure-Patient Inst. Referrals: JARED HIDALGO MD (PCP/Family) Primary Care Physician Patient Instructions: Chest Pain That Is Not Caused by the Heart (DC), Costochondritis (DC) Add. Discharge Instructions: ALTERNATE ICE AND HEAT TO SORE AREA AT 20 MINUTE INTERVALS NO ACTIVITIES TOLERATED FOLLOW UP WITH [facility] IN 2-3 DAYS IF NO BETTER All discharge instructions reviewed with patient and/or family. Voiced understanding. Scripts Cyclobenzaprine HCl (Cyclobenzaprine HCl) 10 Mg Tablet 10 MG PO Q8H, #15 TAB Prov: MIGUEL ÁNGELSANTI K DO 07/22/17 Methylprednisolone (Medrol) 4 Mg Tab.ds.pk 4 MG PO UD, #1 PKG Prov: SANTI DEL ROSARIO DO 07/22/17 MIGUEL ÁNGELSANTI Rodriguez DO Jul 22, 2017 11:19
[2017-07-22] MEDS ORDERED: METH4TAB PO (11:23)
[2017-07-22] MEDS ORDERED: CYCL10TA9 PO (11:23)
[2017-07-22] MEDS ORDERED: KETOROLAC 30 MG/ML VIAL IVP ONE (11:30)
[2017-07-22 11:38] VITALS: BP 120/69
== END 2017-07-22 11:38 | disposition home or self-care (01) ==
LOC: EDUNIT# 10:03 → ER 10:04
DX: R07.89 Other chest pain (principal); G40.909 Epilepsy, unspecified, not intractable, without status epilepticus; Z87.891 Personal history of nicotine dependence; Z98.890 Other specified postprocedural states; Z87.42 Personal history of other diseases of the female genital tract; Z87.2 Personal history of diseases of the skin and subcutaneous tissue
CPT/HCPCS: 36415; 71046; 80053; 82150; 83690; 83735; 83880; 84484; 84703; 85025; 85610; 85730; 93005; 93041; 96374